=== PATIENT | female | born 1975 | race Hispanic/Latino ===

== ENCOUNTER 2019-08-22 14:11 | Emergency (ER) | payer OTHER ==
[2019-08-22] MEDS ORDERED: SODIUM CHLORIDE 0.9% 1000 ML 1,000 ML IV ONE (15:34)
[2019-08-22] MEDS ORDERED: DICYCLOMINE 20 MG/2 ML INJ IM ONE (15:34)
[2019-08-22] MEDS ORDERED: ONDANSETRON 4 MG/2 ML INJ IV ONE (15:34)
[2019-08-22] MEDS ORDERED: FAMOTIDINE 20 MG/2 ML INJ IV ONE (15:34)
[2019-08-22 15:48] LABS: Basophils % (Auto) 0.2 % (0.0-1.8); Eosinophils # (Auto) 0.1 K/mm3 (0.0-0.4); Eosinophils % (Auto) 0.8 % (0.0-4.3); Hemoglobin 12.6 gm/dl (10.1-14.3); Lymphocytes # (Auto) 0.7 K/mm3 (1.2-5.4); Lymphocytes % (Auto) 7.5 % (13.4-35.0); Mean Corpuscular HGB Conc 33 % (30-34); Mean Corpuscular Volume 90 fl (79-97); Monocytes # (Auto) 0.3 K/mm3 (0.0-0.8); Monocytes % (Auto) 3.6 % (0.0-7.3); Platelet Count 230 K/mm3 (140-440); Red Blood Count 4.21 M/mm3 (3.65-5.03); Red Cell Distribution Width 13.7 % (13.2-15.2)
[2019-08-22 16:30] LABS: Alanine Aminotransferase 11 units/L (7-56); Albumin 3.9 g/dL (3.9-5); BUN/Creatinine Ratio 30; Blood Urea Nitrogen 15 mg/dL (7-17); Calcium 8.9 mg/dL (8.4-10.2)
--- NOTE | 2019-08-22 18:13 | Cat Scan Report ---
CT ABDOMEN AND PELVIS WITH IV CONTRAST INDICATION: MAIN. Abdominal pain with nausea and vomiting 2 days COMPARISON: None available. TECHNIQUE: Axial CT images were obtained through the abdomen and pelvis after [address] scans at t his location are performed using CT dose reduction for ALARA by means of automated exposure control. FINDINGS -- ABDOMEN: Lung Bases: No acute abnormality. Liver: Normal. Gallbladder: Removed. Bile Ducts: Normal. Pancreas: Normal. Spleen: Normal. Adrenals: Normal. Right Kidney and Proximal Ureter: Normal. Left Kidney and Proximal Ureter: Normal. Stomach and Bowel: Normal. Lymph Nodes: No significant adenopathy. Aorta: No significant abnormality. IVC: Normal. Additional Findings: None. FINDINGS -- PELVIS: Urinary Bladder and Distal Ureters: Normal. Reproductive Organs: There is a 3.4 similar mildly complex cyst arising from the left ovary. Several smaller cysts are also present. Appendix: Normal. Bowel: The colonic wall is slightly prominent diffusely.. Free Fluid: None. Lymph Nodes: No significant adenopathy. Additional Findings: None. Skeletal System: No acute abnormality. IMPRESSION: Findings suggestive of borderline colitis. There is also a 3.4 cm mildly complex cyst arising from th e left ovary. Signer Name: Danny Singh MD Signed: 08/22/2019 6:08 PM Workstation Name: [id number]
--- NOTE | 2019-08-22 18:56 | Emergency Department Report ---
ED N/V/D HPI - General Chief complaint: Nausea/Vomiting/Diarrhea Stated complaint: N/V/BLADDER Time Seen by Provider: 08/22/19 15:31 Source: patient, EMS Mode of arrival: Stretcher Limitations: No Limitations - History of Present Illness Initial comments: Patient is a 43-year-old female who currently is at [facility] for alcohol and heroin detox who is complaining of nausea vomiting diarrhea for the past day. Patient states she also feels a bulging in her vaginal region. It is worse when she is standing and actively vomiting. Patient states that she is having some crampy diffuse abdominal pain is worse when she is vomiting and having diarrhea. She denies fever chills cough cold or congestion at this time. Patient is receiving tramadol for pain from [facility]. - Related Data Previous Rx's Medication Instructions Recorded Last Taken Type Ciprofloxacin HCl [Ciprofloxacin 500 mg PO Q12HR #14 tab 08/22/19 Unknown Rx TAB] Dicyclomine [Bentyl] 20 mg PO QID #10 tablet 08/22/19 Unknown Rx Diphenoxylate/Atropine [Lomotil] 1 tab PO Q4H PRN #10 tablet 08/22/19 Unknown Rx Ondansetron [Zofran Odt] 4 mg PO Q8HR #10 tab.rapdis 08/22/19 Unknown Rx metroNIDAZOLE [Flagyl] 500 mg PO Q12HR #14 tab 08/22/19 Unknown Rx ED Review of Systems ROS: Stated complaint: N/V/BLADDER Other details as noted in HPI Comment: All other systems reviewed and negative ED Past Medical Hx - Past Medical History Previous Medical History?: Yes Hx GERD: Yes Hx Seizures: Yes Hx Psychiatric Treatment: Yes (depression) Additional medical history: ETOH - Surgical History Past Surgical History?: Yes Additional Surgical History: back sx, right oophorectomy, gall bladder removal - Social History Smoking Status: Current Every Day Smoker Substance Use Type: Alcohol, Other - Medications Home Medications: Home Medications Medication Instructions Recorded Confirmed Last Taken Type Ciprofloxacin HCl [Ciprofloxacin 500 mg PO Q12HR #14 tab 08/22/19 Unknown Rx TAB] Dicyclomine [Bentyl] 20 mg PO QID #10 tablet 08/22/19 Unknown Rx Diphenoxylate/Atropine [Lomotil] 1 tab PO Q4H PRN #10 tablet 06/28/20 Unknown Rx Ondansetron [Zofran Odt] 4 mg PO Q8HR #10 tab.rapdis 08/22/19 Unknown Rx metroNIDAZOLE [Flagyl] 500 mg PO Q12HR #14 tab 08/22/19 Unknown Rx ED Physical Exam - General Limitations: No Limitations General appearance: alert, in no apparent distress - Head Head exam: Present: atraumatic, normocephalic - Eye Eye exam: Present: normal appearance, PERRL, EOMI - ENT ENT exam: Present: mucous membranes moist - Neck Neck exam: Present: normal inspection - Respiratory Respiratory exam: Present: normal lung sounds bilaterally. Absent: respiratory distress - Cardiovascular Cardiovascular Exam: Present: regular rate, normal rhythm, normal heart sounds. Absent: systolic murmur, diastolic murmur, rubs, gallop - GI/Abdominal GI/Abdominal exam: Present: soft, tenderness (diffuse discomfort), normal bowel sounds. Absent: distended, guarding, rebound - Bi-manual exam: Present: other (mild bladder proloapse) - Extremities Exam Extremities exam: Present: normal inspection - Back Exam Back exam: Present: normal inspection - Neurological Exam Neurological exam: Present: alert, oriented X3 - Psychiatric Psychiatric exam: Present: normal affect, normal mood - Skin Skin exam: Present: warm, dry, intact, normal color. Absent: rash ED Course Vital Signs 08/22/19 08/22/19 14:40 16:09 Temperature 98.3 F Pulse Rate 84 Respiratory 16 18 Rate Blood Pressure 123/89 O2 Sat by Pulse 96 Oximetry ED Medical Decision Making - Lab Data Result diagrams: 08/22/19 15:39 08/22/19 15:39 Temp Pulse Resp BP Pulse Ox 98.3 F 84 18 123/89 96 08/22/19 14:40 08/22/19 14:40 08/22/19 16:09 08/22/19 14:40 08/22/19 14:40 Lab Results 08/22/19 08/22/19 08/22/19 Range/Units 15:39 15:39 16:44 WBC 9.3 (4.5-11.0) K/mm3 RBC 4.21 (3.65-5.03) M/mm3 Hgb 12.6 (10.1-14.3) gm/dl Hct 38.0 (30.3-42.9) % MCV 90 (79-97) fl MCH 30 (28-32) pg MCHC 33 (30-34) % RDW 13.7 (13.2-15.2) % Plt Count 230 (140-440) K/mm3 Lymph % (Auto) 7.5 L (13.4-35.0) % Lynn % (Auto) 3.6 (0.0-7.3) % Eos % (Auto) 0.8 (0.0-4.3) % Baso % (Auto) 0.2 (0.0-1.8) % Lymph # 0.7 L (1.2-5.4) K/mm3 Lynn # 0.3 (0.0-0.8) K/mm3 Eos # 0.1 (0.0-0.4) K/mm3 Baso # 0.0 (0.0-0.1) K/mm3 Seg Neutrophils % 87.9 H (40.0-70.0) % Seg Neutrophils # 8.2 H (1.8-7.7) K/mm3 Sodium 138 (137-145) mmol/L Potassium 4.1 (3.6-5.0) mmol/L Chloride 100.6 (98-107) mmol/L Carbon Dioxide 28 (22-30) mmol/L Anion Gap 14 mmol/L BUN 15 (7-17) mg/dL Creatinine 0.5 L (0.7-1.2) mg/dL Estimated GFR > 60 ml/min BUN/Creatinine Ratio 30 % Glucose 108 H (65-100) mg/dL Calcium 8.9 (8.4-10.2) mg/dL Total Bilirubin 0.30 (0.1-1.2) mg/dL AST 14 (5-40) units/L ALT 11 (7-56) units/L Alkaline Phosphatase 62 (35-129) units/L Total Protein 6.6 (6.3-8.2) g/dL Albumin 3.9 (3.9-5) g/dL Albumin/Globulin Ratio 1.4 % HCG, Qual Negative (Negative) - Radiology Data CT ABDOMEN AND PELVIS WITH IV CONTRAST INDICATION: MAIN. Abdominal pain with nausea and vomiting 2 days COMPARISON: None available. TECHNIQUE: Axial CT images were obtained through the abdomen and pelvis after [address] scans at this location are performed using CT dose reduction for ALARA by means of automated exposure control. FINDINGS -- ABDOMEN: Lung Bases: No acute abnormality. Liver: Normal. Gallbladder: Removed. Bile Ducts: Normal. Pancreas: Normal. Spleen: Normal. Adrenals: Normal. Right Kidney and Proximal Ureter: Normal. Left Kidney and Proximal Ureter: Normal. Stomach and Bowel: Normal. Lymph Nodes: No significant adenopathy. Aorta: No significant abnormality. IVC: Normal. Additional Findings: None. FINDINGS -- PELVIS: Urinary Bladder and Distal Ureters: Normal. Reproductive Organs: There is a 3.4 similar mildly complex cyst arising from the left ovary. Several smaller cysts are also present. Appendix: Normal. Bowel: The colonic wall is slightly prominent diffusely.. Free Fluid: None. Lymph Nodes: No significant adenopathy. Additional Findings: None. Skeletal System: No acute abnormality. IMPRESSION: Findings suggestive of borderline colitis. There is also a 3.4 cm mildly complex cyst arising from the left ovary. Signer Name: Danny Singh MD Signed: 08/22/2019 5:08 PM Workstation Name: [email or web address] - Medical Decision Making Patient is a 43-year-old female who is here for nausea vomiting diarrhea. CT is equivocal for early colitis. Patient be started on Cipro and Flagyl. She is feeling better after medications given here and she will be given medication for symptomatic relief as well. Regarding the patient's bladder prolapse did not appear to need any acute intervention at this time. Patient be given UROLOGIST PHYSICIAN for follow-up. Critical care attestation.: If time is entered above; I have spent that time in minutes in the direct care of this critically ill patient, excluding procedure time. ED Disposition Clinical Impression: Colitis, Bladder prolapse, female, acquired Disposition: DC-01 TO HOME OR SELFCARE Is pt being admited?: No Does the pt Need Aspirin: No Condition: Stable Instructions: Infectious Colitis (ED) Referrals: ELEN HERNANDEZ MD [Staff Physician] - 7-10 days (for evaluation of bladder prolapse)
[2019-08-22 21:25] VITALS: BP 132/83
== END 2019-08-22 21:24 | disposition home or self-care (01) ==
LOC: ED 14:11
DX: K52.9 Noninfective gastroenteritis and colitis, unspecified (principal); N81.10 Cystocele, unspecified; K21.9 Gastro-esophageal reflux disease without esophagitis; F32.9 Major depressive disorder, single episode, unspecified; F17.200 Nicotine dependence, unspecified, uncomplicated
CPT/HCPCS: 36415; 74177; 80053; 84703; 85025; 96361; 96374; 96375; 99284; J2405; J7030; Q9967; J0500